=== PATIENT | female | born 1955 | race Caucasian/White ===

== ENCOUNTER → 2016-07-18 | Outpatient (CLI) | payer OTHER ==
--- NOTE | 2016-07-18 15:16 | DIAGNOSTIC IMAGING REPORT ---
RIGHT SHOULDER 3 VIEWS CLINICAL HISTORY: Right shoulder pain. FINDINGS: 3 views of the right shoulder are obtained. No prior studies are available for comparison at the time of dictation. The skeletal structures are osteopenic. No fracture or dislocation is seen. Mild productive change is seen at the acromioclavicular joint. The glenohumeral articulation appears preserved. The overlying soft tissues are within normal limits. Right basilar atelectasis is noted. The imaged right lung parenchyma is otherwise grossly clear. IMPRESSION: Osteopenia and mild degenerative change as above. No acute bony abnormality is identified in the right shoulder. Electronically signed by: Pete Kingston M.D. 07/18/2016 3:14 PM Dictated Date/Time: 07/18/2016 3:13 PM
== END | disposition home or self-care (01) ==
LOC: C.RAD1850 14:58
PROVIDERS: ATTEND Nurse Practitioner Adult Health
DX: M25.511 Pain in right shoulder (principal)